=== PATIENT | female | born 1990 | race American Indian/Alaskan Native ===

== ENCOUNTER 2016-08-06 23:12 | Emergency (ER) | payer SELFPAY ==
[2016-08-06 23:41] VITALS: BP 138/72
== END 2016-08-07 | disposition left against medical advice (07) ==
LOC: ED 23:12
DX: R55 Syncope and collapse (principal); Z53.21 Procedure and treatment not carried out due to patient leaving prior to being seen by health care provider
CPT/HCPCS: 82962

== ENCOUNTER 2016-09-21 11:22 | Emergency (ER) | payer SELFPAY ==
--- NOTE | 2016-09-21 11:43 | Emergency Department Report ---
Chief Complaint: Urogenital-Female Stated Complaint: POSSIBLE UTI,CHLAMDYIA Time Seen by Provider: 09/21/16 11:41 - HPI History of Present Illness: PT states she had sex with her boyfriend a few days ago. PT states yesterday he told her that he was having penile drainage. - ROS Review of Systems: - dysuria + discharge, + white discharge - Exam Physical Exam: PT looks well, non toxic. steady gait gu exam not done in triage MSE screening note: Focused history and physical exam performed. Due to findings the following was ordered: labs ED Disposition for MSE Condition: Stable
[2016-09-21 11:46] VITALS: BP 108/42
--- NOTE | 2016-09-21 15:37 | Emergency Department Report ---
ED Female HPI - General Chief complaint: Urogenital-Female Stated complaint: POSSIBLE UTI,CHLAMDYIA Time Seen by Provider: 09/21/16 11:41 Source: patient Mode of arrival: Ambulatory Limitations: No Limitations - History of Present Illness Initial comments: This is a 26-year-old female well-nourished with nontoxic or ill in appearance but presented to ED complaining of possible STD exposure. Patient stated her boyfriend, which is currently being treated for STD in ED currently today, presented with a penile discharge times one day. Patient stated had a sexual unprotected sex 5 days ago prior to boyfriend having the symptoms. Patient denies any vaginal symptoms. Denies abdominal pelvic pain. Denies vaginal discharge, vaginal bleeding, dysuria, polyuria, foul order, chest pain, shortness of breath, fever, chills, headache nausea or vomiting. Patient stated "I want to be treated empirically for STD". Patient denies any allergies. Denies past medical history. Last menstrual cycle 09/16/16. MD Complaint: possible STD -: Gradual, days(s) (1) Improves with: none Worsens with: none Are you Now?: No (as per patient) Associated Symptoms: denies other symptoms. denies: vaginal discharge, vaginal bleeding, abdominal pain, nausea/vomiting, fever/chills, headaches, loss of appetite, dysuria, hematuria, rash, seizure, shortness of breath, syncope, weakness - Related Data Sexually active: Yes Allergies Allergy/AdvReac Type Severity Reaction Status Date / Time No Known Allergies Allergy Verified 09/21/16 11:42 ED Review of Systems ROS: Stated complaint: POSSIBLE UTI,CHLAMDYIA Other details as noted in HPI Constitutional: denies: chills, fever Eyes: denies: eye pain, eye discharge, vision change ENT: denies: ear pain, throat pain Respiratory: denies: cough, shortness of breath, wheezing Cardiovascular: denies: chest pain, palpitations Endocrine: no symptoms reported Gastrointestinal: denies: abdominal pain, nausea, diarrhea Genitourinary: denies: urgency, dysuria, discharge Musculoskeletal: denies: back pain, joint swelling, arthralgia Skin: denies: rash, lesions Neurological: denies: headache, weakness, paresthesias Psychiatric: denies: anxiety, depression Hematological/Lymphatic: denies: easy bleeding, easy bruising ED Past Medical Hx - Past Medical History Previous Medical History?: No Hx Seizures: Yes Additional medical history: ovarian cysts - Surgical History Past Surgical History?: No - Social History Smoking Status: Never Smoker Substance Use Type: Alcohol ED Physical Exam - General Limitations: No Limitations General appearance: alert, in no apparent distress - Head Head exam: Present: atraumatic, normocephalic, normal inspection - Eye Eye exam: Present: normal appearance, PERRL, EOMI. Absent: scleral icterus, conjunctival injection, nystagmus, periorbital swelling, periorbital tenderness Pupils: Present: normal accommodation - ENT ENT exam: Present: normal exam, normal orophraynx, mucous membranes moist, TM's normal bilaterally, normal external ear exam - Neck Neck exam: Present: normal inspection, full ROM. Absent: tenderness, meningismus, lymphadenopathy, thyromegaly - Respiratory Respiratory exam: Present: normal lung sounds bilaterally. Absent: respiratory distress, wheezes, rales, rhonchi, stridor, chest wall tenderness, accessory muscle use, decreased breath sounds, prolonged expiratory - Cardiovascular Cardiovascular Exam: Present: regular rate, normal rhythm, normal heart sounds. Absent: bradycardia, tachycardia, irregular rhythm, systolic murmur, diastolic murmur, rubs, gallop - GI/Abdominal GI/Abdominal exam: Present: soft, normal bowel sounds. Absent: distended, tenderness, guarding, rebound, rigid, diminished bowel sounds - Rectal Rectal exam: Present: deferred - External exam: Present: other (patient refuses exam) Speculum exam: Present: other (patient refused exam) Bi-manual exam: Present: other (patient refused exam) - Extremities Exam Extremities exam: Present: normal inspection, full ROM, normal capillary refill. Absent: tenderness, pedal edema, joint swelling, calf tenderness - Back Exam Back exam: Present: normal inspection, full ROM. Absent: tenderness, CVA tenderness (R), CVA tenderness (L), muscle spasm, paraspinal tenderness, vertebral tenderness, rash noted - Neurological Exam Neurological exam: Present: alert, oriented X3, CN II-XII intact, normal gait, reflexes normal - Psychiatric Psychiatric exam: Present: normal affect, normal mood - Skin Skin exam: Present: warm, dry, intact, normal color. Absent: rash ED Course Vital Signs 09/21/16 11:42 Temperature 98.1 F Pulse Rate 69 Respiratory 16 Rate Blood Pressure 108/42 O2 Sat by Pulse 100 Oximetry - Reevaluation(s) Reevaluation #1: 09/21/16 15:35 Patient is speaking in full sinus with no signs of distress noted. Reevaluation #2: 09/21/16 15:35 Patient states she refuses pelvic exam or any gonorrhea/chlamydia over prep exam. Patient states she just wants to be treated empirically in the ED for STD. Patient was instructed of my concerns and the importance of pelvic exam and testing for what prep. Patient still refused. ED Medical Decision Making - Medical Decision Making ED course; this is a 26-year-old female that presents with possible STD exposure 1- Patient states she refuses pelvic exam or any gonorrhea/chlamydia over prep exam. Patient states she just wants to be treated empirically in the ED for STD. Patient was instructed of my concerns and the importance of pelvic exam and testing for what prep. Patient still refused. 2- patient received Rocephin and azithromycin in the ED. 3- patient was instructed to follow-up with her primary care doctor in 3-5 days or if symptoms such as vaginal bleeding, vaginal discharge, fever, chills, chest pain, shortness of breath, abd pain or pelvic pain return to emergency room as was possible. 4- at time time of discharge, the patient does not seem toxic or ill in appearance. No acute signs of distress noted. Patient agrees to discharge treatment plan of care. No further questions noted by the patient. 5- Ua indicates elevated WBC, this may be due to and STD or another bacterial vaginal infection. Due to patient denies CVA tenderness or UTI symptoms, patient will not be treated for UTI. Patient was instructed if develops back pain and has UTI symptoms to return to ED as soon as possible Critical care attestation.: If time is entered above; I have spent that time in minutes in the direct care of this critically ill patient, excluding procedure time. ED Disposition Clinical Impression: Possible exposure to STD Disposition: DC-01 TO HOME OR SELFCARE Is pt being admited?: No Does the pt Need Aspirin: No Condition: Stable Instructions: Safe Sex (ED) Additional Instructions: follow-up with your primary care doctor in 3-5 days or if symptoms such as vaginal bleeding, vaginal discharge, fever, chills, chest pain, shortness of breath, abd pain or pelvic pain return to emergency room as was possible. Referrals: PRIMARY CARE, [Primary Care Provider] - 3-5 Days GUSTABO ANGULO JR, MD [Staff Physician] - 3-5 Days [facility] [Outside] - 3-5 Days [facility] [Outside] - 3-5 Days Forms: Work/School Release Form(ED)
[2016-09-21 16:22] LABS: Bacteria,Urine 1+ /HPF (Negative); Bilirubin,Urine NEG (Negative); Blood,Urine MOD (Negative); Ketones,Urine NEG (Negative); Leukocyte Esterase,Urine TR (Negative); Mucus,Urine 3+ /HPF; Nitrite,Urine NEG (Negative); Urobilinogen,Urine < 2.0 mg/dL (<2.0)
[2016-09-21] MEDS ORDERED: XYLOCAINE 1% MPF 5 mL INFILTRATI ONE (16:36)
[2016-09-21] MEDS ORDERED: ZITHROMAX PO ONE (16:36)
[2016-09-21] MEDS ORDERED: ROCEPHIN IM ONE (16:36)
== END 2016-09-21 16:59 | disposition home or self-care (01) ==
LOC: ED 11:22
DX: N89.8 Other specified noninflammatory disorders of vagina (principal)
CPT/HCPCS: 81001; 81025; 96372; 99283; J0696

== ENCOUNTER 2017-08-17 19:29 | Emergency (ER) | payer SELFPAY ==
[2017-08-17 20:59] LABS: Bilirubin,Urine NEG (Negative); Blood,Urine SM (Negative); Color,Urine Yellow (Yellow); Mucus,Urine 1+ /HPF; Protein,Urine <15 mg/dL mg/dL (Negative); Urobilinogen,Urine < 2.0 mg/dL (<2.0)
--- NOTE | 2017-08-18 00:22 | Emergency Department Report ---
ED Female HPI - General Chief complaint: Urogenital-Female Stated complaint: BURNING AND IRRITATED TO USE RESTROOM Source: patient Mode of arrival: Ambulatory Limitations: No Limitations - History of Present Illness Initial comments: Omeri 7-year-old -[place] female comes in stating she's been burning for one week. She reports that she just feels a little bit after she voids. She denies any fever or chills she denies any vaginal discharge or vaginal leading denies any pelvic pain denies any abdominal pain she denies any fever or chills no nausea no vomiting. Complaint: dysuria -: week(s) (1) Quality: burning Consistency: intermittent Are you Now?: No Last Menstrual Period: 07/23/17 EDC: 04/29/18 Associated Symptoms: denies: vaginal discharge, vaginal bleeding, abdominal pain , nausea/vomiting, fever/chills, headaches, hematuria - Related Data Sexually active: Yes Allergies Allergy/AdvReac Type Severity Reaction Status Date / Time No Known Allergies Allergy Verified 09/21/16 11:42 ED Review of Systems ROS: Stated complaint: BURNING AND IRRITATED TO USE RESTROOM Other details as noted in HPI Constitutional: denies: chills, fever Gastrointestinal: denies: abdominal pain, nausea, diarrhea Genitourinary: dysuria ED Past Medical Hx - Past Medical History Hx Seizures: Yes Additional medical history: ovarian cysts - Social History Smoking Status: Never Smoker Substance Use Type: None ED Physical Exam - General Limitations: No Limitations General appearance: alert, in no apparent distress, other (nontoxic) - Head Head exam: Present: atraumatic, normocephalic - ENT ENT exam: Present: mucous membranes moist - Respiratory Respiratory exam: Present: normal lung sounds bilaterally. Absent: respiratory distress - Cardiovascular Cardiovascular Exam: Present: regular rate, normal rhythm. Absent: systolic murmur, diastolic murmur, rubs, gallop - GI/Abdominal GI/Abdominal exam: Present: soft, normal bowel sounds - External exam: Present: other (declines examination) - Neurological Exam Neurological exam: Present: alert, oriented X3 - Psychiatric Psychiatric exam: Present: normal affect, normal mood - Skin Skin exam: Present: warm, dry, intact, normal color. Absent: rash ED Course Vital Signs 08/17/17 08/17/17 20:09 20:33 Temperature 98.4 F 98.4 F Pulse Rate 84 79 Respiratory 18 Rate Blood Pressure 138/71 138/71 O2 Sat by Pulse 100 99 Oximetry ED Medical Decision Making - Medical Decision Making Patient has been evaluated but this provider fast track. Patient was on a concern that she had a urinary tract infection. Patient declines having a pelvic exam done. Patient has no other concerns no fever chills or nausea no vomiting no abdominal pain or pelvic pain. Discussed the patient symptoms persist or gets worse she should follow back up either in the emergency room or primary care provider. Patient verbalizes understanding Critical care attestation.: If time is entered above; I have spent that time in minutes in the direct care of this critically ill patient, excluding procedure time. ED Disposition Clinical Impression: Dysuria Disposition: DC-01 TO HOME OR SELFCARE Is pt being admited?: No Does the pt Need Aspirin: No Condition: Stable Instructions: Dysuria (ED) Additional Instructions: Please increase fluid intake. If symptoms persist or gets worse please follow up with her primary care provider with emergency room. Referrals: PRIMARY CAREMD [Primary Care Provider] - 3-5 Days [facility] [Provider Group] - 3-5 Days Forms: Work/School Release Form(ED)
[2017-08-18 01:30] VITALS: BP 125/68
== END 2017-08-18 00:45 | disposition home or self-care (01) ==
LOC: ED 19:29
DX: R30.0 Dysuria (principal)
CPT/HCPCS: 81001; 99283

== ENCOUNTER 2018-09-19 14:47 | Emergency (ER) | payer SELFPAY ==
--- NOTE | 2018-09-19 15:22 | Emergency Department Report ---
Blank Doc - Documentation Documentation: This is a 28-year-old female that presents with pelvic pain and nausea. This initial assessment/diagnostic orders/clinical plan/treatment(s) is/are subject to change based on patient's health status, clinical progression and re- assessment by fellow clinical providers in the ED. Further treatment and workup at subsequent clinical providers discretion. Patient/guardians urged not to elope from the ED as their condition may be serious if not clinically assessed and managed. Initial orders include: 1- Patient sent to [facility] for further evaluation and treatment 2- UA
[2018-09-19 15:24] VITALS: BP 117/70
[2018-09-19 16:21] LABS: HCG Qualitative,Urine Negative (Negative)
[2018-09-19 16:24] LABS: Bilirubin,Urine NEG (Negative); Blood,Urine SM (Negative); Color,Urine Yellow (Yellow); Hyaline Casts,Urine 2 /LPF; Mucus,Urine 3+ /HPF; Protein,Urine <15 mg/dL mg/dL (Negative); Urobilinogen,Urine < 2.0 mg/dL (<2.0)
--- NOTE | 2018-09-19 16:43 | Emergency Department Report ---
ED Dysuria HPI - HPI Chief Complaint: Abdominal Pain Stated Complaint: STOMACH PAIN/DIZZY/VOMIT Time Seen by Provider: 09/19/18 15:21 Duration: 2 Days Severity: None Symptoms: Dysuria: No, Frequency: No, Suprapubic Pain: No, Flank Pain: No, Fever: No, Hematuria: No, Abdominal Pain: No, Previous UTI's: No Other History: Patient is a 28-year-old obese female who comes to the ER today stating that she had a home test and that she has had some nausea vomiting and dizziness. She is here to confirm her . Her last menstrual cycle was April 05. She has been once before and had one miscarriage. Patient states that she only spotted one time between March and now on that was in June. She denies abdominal pain. She denies any vaginal bleeding or discharge at this time. She is here with her significant other who is quite shocked that the patient is not for she has had a home test that was positive and has gained a lot of weight. ED Review of Systems ROS: Stated complaint: STOMACH PAIN/DIZZY/VOMIT Other details as noted in HPI Comment: All other systems reviewed and negative ED Past Medical Hx - Past Medical History Previous Medical History?: Yes Hx Seizures: Yes Additional medical history: ovarian cysts - Surgical History Past Surgical History?: No - Family History Family history: no significant - Social History Smoking Status: Never Smoker Substance Use Type: None - Medications Home Medications: Home Medications Medication Instructions Recorded Confirmed Last Taken Type Sulfamethoxazole/Trimethoprim 1 each PO BID #6 tablet 09/19/18 Unknown Rx [Bactrim DS TAB] Dysuria Exam - Exam General: Vital signs noted. No distress. Alert and acting appropriately. Exam: Yes Moist Mucous Membranes, No CVA Tenderness, No Abdominal Tenderness, No Rigidity or Guarding Labs: Lab Results 09/19/18 Range/Units 15:53 Urine Color Yellow (Yellow) Urine Turbidity Slightly-cloudy (Clear) Urine pH 6.0 (5.0-7.0) Ur Specific [place] 1.020 (1.003-1.030) Urine Protein <15 mg/dl (Negative) mg/dL Urine Glucose (UA) Neg (Negative) mg/dL Urine Ketones Neg (Negative) mg/dL Urine Blood Sm (Negative) Urine Nitrite Neg (Negative) Ur Reducing Substances Not Reportable Urine Bilirubin Neg (Negative) Urine Ictotest Not Reportable Urine Urobilinogen < 2.0 (<2.0) mg/dL Ur Leukocyte Esterase Sm (Negative) Urine WBC (Auto) 10.0 H (0.0-6.0) /HPF Urine RBC (Auto) 5.0 (0.0-6.0) /HPF U Epithel Cells (Auto) 8.0 (0-13.0) /HPF Hyaline Casts 2 /LPF Urine Mucus 3+ /HPF Urine HCG, Qual Negative (Negative) ED Course Vital Signs 09/19/18 15:22 Temperature 98.3 F Pulse Rate 78 Respiratory 18 Rate Blood Pressure 117/70 O2 Sat by Pulse 100 Oximetry ED Medical Decision Making - Lab Data Result diagrams: 09/19/18 17:20 09/19/18 17:20 - Medical Decision Making Lab Results 09/19/18 09/19/18 09/19/18 Range/Units 15:53 17:20 17:20 WBC 9.8 (4.5-11.0) K/mm3 RBC 4.57 (3.65-5.03) M/mm3 Hgb 13.9 (10.1-14.3) gm/dl Hct 41.5 (30.3-42.9) % MCV 91 (79-97) fl MCH 31 (28-32) pg MCHC 34 (30-34) % RDW 13.4 (13.2-15.2) % Plt Count 388 (140-440) K/mm3 Sodium 141 (137-145) mmol/L Potassium 3.7 (3.6-5.0) mmol/L Chloride 104.0 (98-107) mmol/L Carbon Dioxide 25 (22-30) mmol/L Anion Gap 16 mmol/L BUN 8 (7-17) mg/dL Creatinine 0.8 (0.7-1.2) mg/dL Estimated GFR > 60 ml/min BUN/Creatinine Ratio 10 % Glucose 106 H (65-100) mg/dL Calcium 9.1 (8.4-10.2) mg/dL HCG, Quant (0-4) mIU/mL Urine Color Yellow (Yellow) Urine Turbidity Slightly-cloudy (Clear) Urine pH 6.0 (5.0-7.0) Ur Specific [place] 1.020 (1.003-1.030) Urine Protein <15 mg/dl (Negative) mg/dL Urine Glucose (UA) Neg (Negative) mg/dL Urine Ketones Neg (Negative) mg/dL Urine Blood Sm (Negative) Urine Nitrite Neg (Negative) Ur Reducing Substances Not Reportable Urine Bilirubin Neg (Negative) Urine Ictotest Not Reportable Urine Urobilinogen < 2.0 (<2.0) mg/dL Ur Leukocyte Esterase Sm (Negative) Urine WBC (Auto) 10.0 H (0.0-6.0) /HPF Urine RBC (Auto) 5.0 (0.0-6.0) /HPF U Epithel Cells (Auto) 8.0 (0-13.0) /HPF Hyaline Casts 2 /LPF Urine Mucus 3+ /HPF Urine HCG, Qual Negative (Negative) 09/19/18 Range/Units 17:20 WBC (4.5-11.0) K/mm3 RBC (3.65-5.03) M/mm3 Hgb (10.1-14.3) gm/dl Hct (30.3-42.9) % MCV (79-97) fl MCH (28-32) pg MCHC (30-34) % RDW (13.2-15.2) % Plt Count (140-440) K/mm3 Sodium (137-145) mmol/L Potassium (3.6-5.0) mmol/L Chloride (98-107) mmol/L Carbon Dioxide (22-30) mmol/L Anion Gap mmol/L BUN (7-17) mg/dL Creatinine (0.7-1.2) mg/dL Estimated GFR ml/min BUN/Creatinine Ratio % Glucose (65-100) mg/dL Calcium (8.4-10.2) mg/dL HCG, Quant < 2 (0-4) mIU/mL Urine Color (Yellow) Urine Turbidity (Clear) Urine pH (5.0-7.0) Ur Specific [place] (1.003-1.030) Urine Protein (Negative) mg/dL Urine Glucose (UA) (Negative) mg/dL Urine Ketones (Negative) mg/dL Urine Blood (Negative) Urine Nitrite (Negative) Ur Reducing Substances Urine Bilirubin (Negative) Urine Ictotest Urine Urobilinogen (<2.0) mg/dL Ur Leukocyte Esterase (Negative) Urine WBC (Auto) (0.0-6.0) /HPF Urine RBC (Auto) (0.0-6.0) /HPF U Epithel Cells (Auto) (0-13.0) /HPF Hyaline Casts /LPF Urine Mucus /HPF Urine HCG, Qual (Negative) Vital Signs 09/19/18 15:22 Temperature 98.3 F Pulse Rate 78 Respiratory 18 Rate Blood Pressure 117/70 O2 Sat by Pulse 100 Oximetry u preg neg labs noted hcg serum neg urine noted dc home with dc plan of care and obgyn follow up - Differential Diagnosis ro Critical care attestation.: If time is entered above; I have spent that time in minutes in the direct care of this critically ill patient, excluding procedure time. ED Disposition Clinical Impression: UTI (urinary tract infection), Negative test Disposition: DC-01 TO HOME OR SELFCARE Is pt being admited?: No Does the pt Need Aspirin: No Condition: Stable Instructions: Urinary Tract Infection in Women (ED) Additional Instructions: DIET TOLERATED MEDS ORDERED TODAY IN ER FOLLOW INSTRUCTIONS ON THE BOTTLE FOLLOW UP PCP WITHIN 48 HOURS TO ENSURE YOU ARE GETTING BETTER ACTIVITY TOLERATED MOTRIN OR TYLENOL FOR PAIN OR FEVER RETURN TO THE ER FOR WORSENING SYMPTOMS NOT RELIEVED BY YOUR MEDICATIONS. safe sex URINE AND BLOOD NEGATIVE Prescriptions: Sulfamethoxazole/Trimethoprim [Bactrim DS TAB] 1 each PO BID #6 tablet Referrals: PRIMARY CARE, [Primary Care Provider] - 3-5 Days JAE ANDRES MD [Staff Physician] - 3-5 Days Time of Disposition: 18:00
[2018-09-19 17:29] LABS: Hematocrit 41.5 % (30.3-42.9); Hemoglobin 13.9 gm/dl (10.1-14.3); Mean Corpuscular HGB Conc 34 % (30-34); Mean Corpuscular Volume 91 fl (79-97); Platelet Count 388 K/mm3 (140-440); Red Blood Count 4.57 M/mm3 (3.65-5.03); Red Cell Distribution Width 13.4 % (13.2-15.2)
[2018-09-19 17:49] LABS: BUN/Creatinine Ratio 10; Blood Urea Nitrogen 8 mg/dL (7-17); Calcium 9.1 mg/dL (8.4-10.2); Hemolysis Index 31
== END 2018-09-19 18:15 | disposition home or self-care (01) ==
LOC: ED 14:47
DX: N39.0 Urinary tract infection, site not specified (principal); Z32.02 Encounter for pregnancy test, result negative
CPT/HCPCS: 36415; 80048; 81001; 81025; 84702; 85027; 87086; 99283

== ENCOUNTER 2018-11-07 14:53 | Emergency (ER) | payer SELFPAY ==
[2018-11-07 16:07] VITALS: BP 128/71
--- NOTE | 2018-11-07 16:09 | Event Note ---
ED Screening Note Date of service: 11/07/18 Time: 16:06 ED Screening Note: 28 y o female presents with cc of R knee pain This initial assessment/diagnostic orders/clinical plan/treatment(s) is/are subject to change based on patients health status, clinical progression and re- assessment by fellow clinical providers in the ED. Further treatment and workup at subsequent clinical providers discretion. Patient/guardian urged not to elope from the ED as their condition may be serious if not clinically assessed and managed. Initial orders include: xr knee eval acc
--- NOTE | 2018-11-07 17:08 | XRay Report ---
RIGHT KNEE 4 VIEWS INDICATION / CLINICAL INFORMATION: Right knee pain and swelling. COMPARISON: None available. FINDINGS: BONES / JOINT(S): No acute fracture or subluxation. No significant arthritis. SOFT TISSUES: No significant abnormality. ADDITIONAL FINDINGS: None. Signer Name: Agustín Brooks MD Signed: 11/07/2018 5:04 PM Workstation Name: [id number]
--- NOTE | 2018-11-07 19:16 | Emergency Department Report ---
ED Lower Extremity HPI - General Chief Complaint: Extremity Injury, Lower Stated Complaint: RT KNEE PAIN Time Seen by Provider: 11/07/18 16:04 Source: patient Mode of arrival: Ambulatory Limitations: No Limitations - History of Present Illness MD Complaint: knee injury -: days(s) Injury: Knee: Right Type of Injury: unknown Place: home Severity: mild Improves With: nothing Worsens With: weight bearing, movement, palpation Associated Symptoms: able to partially bear weight Treatments Prior to Arrival: cold therapy - Related Data Previous Rx's Medication Instructions Recorded Last Taken Type Sulfamethoxazole/Trimethoprim 1 each PO BID #6 tablet 09/19/18 Unknown Rx [Bactrim DS TAB] Ketorolac [Toradol] 10 mg PO Q6H PRN #15 tablet 11/07/18 Unknown Rx Leg Brace [Knee Brace] 1 each MC DAILY #1 each 11/07/18 Unknown Rx traMADol [Ultram] 50 mg PO Q6HR PRN #20 tablet 11/07/18 Unknown Rx Allergies Allergy/AdvReac Type Severity Reaction Status Date / Time No Known Allergies Allergy Verified 09/21/16 11:42 ED Review of Systems ROS: Stated complaint: RT KNEE PAIN Other details as noted in HPI ED Past Medical Hx - Past Medical History Previous Medical History?: Yes Hx Seizures: Yes Additional medical history: ovarian cysts - Surgical History Past Surgical History?: No - Social History Smoking Status: Never Smoker Substance Use Type: None - Medications Home Medications: Home Medications Medication Instructions Recorded Confirmed Last Taken Type Sulfamethoxazole/Trimethoprim 1 each PO BID #6 tablet 09/19/18 Unknown Rx [Bactrim DS TAB] Ketorolac [Toradol] 10 mg PO Q6H PRN #15 tablet 11/07/18 Unknown Rx Leg Brace [Knee Brace] 1 each MC DAILY #1 each 11/07/18 Unknown Rx traMADol [Ultram] 50 mg PO Q6HR PRN #20 tablet 11/07/18 Unknown Rx ED Physical Exam - General Limitations: No Limitations General appearance: alert, in no apparent distress - Head Head exam: Present: atraumatic, normocephalic - Eye Eye exam: Present: normal appearance - ENT ENT exam: Present: mucous membranes moist - Neck Neck exam: Present: normal inspection - Respiratory Respiratory exam: Present: normal lung sounds bilaterally. Absent: respiratory distress - Cardiovascular Cardiovascular Exam: Present: regular rate, normal rhythm. Absent: systolic murmur, diastolic murmur, rubs, gallop - GI/Abdominal GI/Abdominal exam: Present: soft, normal bowel sounds - Extremities Exam Extremities exam: Present: normal inspection - Expanded Lower Extremity Exam Right Knee exam: Present: tenderness. Absent: swelling, abrasion, laceration, ecchymosis, dislocation, effusion, pain w/ pronation/supination, posterior draw sign, pain/laxity with varus, full knee extension - Back Exam Back exam: Present: normal inspection - Neurological Exam Neurological exam: Present: alert, oriented X3 - Psychiatric Psychiatric exam: Present: normal affect, normal mood - Skin Skin exam: Present: warm, dry, intact, normal color. Absent: rash ED Course Vital Signs 11/07/18 16:04 Temperature 97.9 F Pulse Rate 75 Respiratory 18 Rate Blood Pressure 128/71 O2 Sat by Pulse 100 Oximetry Critical care attestation.: If time is entered above; I have spent that time in minutes in the direct care of this critically ill patient, excluding procedure time. ED Disposition Clinical Impression: Knee pain, right Disposition: DC-01 TO HOME OR SELFCARE Is pt being admited?: No Does the pt Need Aspirin: No Condition: Stable Instructions: Arthralgia (ED) Prescriptions: Leg Brace [Knee Brace] 1 each MC DAILY #1 each Ketorolac [Toradol] 10 mg PO Q6H PRN #15 tablet PRN Reason: Pain traMADol [Ultram] 50 mg PO Q6HR PRN #20 tablet PRN Reason: Pain Referrals: BRAEDEN ZULETA MD [Staff Physician] - 3-5 Days
== END 2018-11-07 19:20 | disposition home or self-care (01) ==
LOC: ED 14:53
DX: M25.561 Pain in right knee (principal); Z79.899 Other long term (current) drug therapy

== ENCOUNTER 2019-02-15 13:29 | Emergency (ER) | payer SELFPAY ==
[2019-02-15 13:59] VITALS: BP 132/80
[2019-02-15] MEDS ORDERED: ONDANSETRON 4 MG ODT TAB PO ONE (14:54)
[2019-02-15] MEDS ORDERED: ONDANSETRON 4 MG/2 ML INJ IV ONE (14:55)
[2019-02-15] MEDS ORDERED: SODIUM CHLORIDE 0.9% 1000 ML 1,000 ML IV ONE (14:55)
--- NOTE | 2019-02-15 14:56 | Emergency Department Report ---
ED N/V/D HPI - General Chief complaint: Upper Respiratory Infection Stated complaint: COLD SX/VOMITING BLOOD/BODY PX Time Seen by Provider: 02/15/19 14:53 Source: patient Mode of arrival: Ambulatory Limitations: No Limitations - History of Present Illness Initial comments: 28 yo AA female comes to ER with myalgia and vomiting. Vomiting on exam. VSS. no fever or chills. no abd pain. 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 MD complaint: vomiting -: Gradual Associated Symptoms: denies other symptoms, myalgias - Related Data Previous Rx's Medication Instructions Recorded Last Taken Type Ondansetron [Zofran Odt] 4 mg PO Q8HR PRN #10 tab.rapdis 02/15/19 Unknown Rx Allergies Allergy/AdvReac Type Severity Reaction Status Date / Time No Known Allergies Allergy Verified 09/21/16 11:42 ED Review of Systems ROS: Stated complaint: COLD SX/VOMITING BLOOD/BODY PX Other details as noted in HPI Comment: All other systems reviewed and negative ED Past Medical Hx - Past Medical History Previous Medical History?: Yes Hx Seizures: Yes Additional medical history: ovarian cysts - Surgical History Past Surgical History?: No - Family History Family history: no significant - Social History Smoking Status: Never Smoker Substance Use Type: None - Medications Home Medications: Home Medications Medication Instructions Recorded Confirmed Last Taken Type Ondansetron [Zofran Odt] 4 mg PO Q8HR PRN #10 tab.rapdis 02/15/19 Unknown Rx ED Physical Exam - General Limitations: No Limitations General appearance: alert, in no apparent distress - Head Head exam: Present: atraumatic, normocephalic - Eye Eye exam: Present: normal appearance - ENT ENT exam: Present: mucous membranes moist - Neck Neck exam: Present: normal inspection - Respiratory Respiratory exam: Present: normal lung sounds bilaterally. Absent: respiratory distress - Cardiovascular Cardiovascular Exam: Present: regular rate, normal rhythm. Absent: systolic murmur, diastolic murmur, rubs, gallop - GI/Abdominal GI/Abdominal exam: Present: soft, normal bowel sounds - Extremities Exam Extremities exam: Present: normal inspection - Back Exam Back exam: Present: normal inspection - Neurological Exam Neurological exam: Present: alert, oriented X3 - Psychiatric Psychiatric exam: Present: normal affect, normal mood - Skin Skin exam: Present: warm, dry, intact, normal color. Absent: rash ED Course Vital Signs 02/15/19 13:57 Temperature 98.2 F Pulse Rate 100 H Respiratory 18 Rate Blood Pressure 132/80 O2 Sat by Pulse 100 Oximetry ED Medical Decision Making - Lab Data Result diagrams: 02/15/19 15:01 02/15/19 15:01 - Medical Decision Making Labs 02/15/19 02/15/19 02/15/19 15:01 15:01 15:02 WBC 9.0 RBC 4.42 Hgb 13.2 Hct 38.9 MCV 88 MCH 30 MCHC 34 RDW 13.0 L Plt Count 406 Lymph % (Auto) 19.9 Rogers % (Auto) 9.1 H Eos % (Auto) 7.8 H Baso % (Auto) 0.4 Lymph # 1.8 Rogers # 0.8 Eos # 0.7 H Baso # 0.0 Seg Neutrophils % 62.8 Seg Neutrophils # 5.6 Sodium 139 Potassium 3.5 L Chloride 101.1 Carbon Dioxide 26 Anion Gap 15 BUN 5 L Creatinine 0.7 Estimated GFR > 60 BUN/Creatinine Ratio 7 Glucose 97 Calcium 9.1 Total Bilirubin 0.50 AST 19 ALT 13 Alkaline Phosphatase 106 Total Protein 7.1 Albumin 4.0 Albumin/Globulin Ratio 1.3 Lipase 24 Urine Color Yellow Urine Turbidity Slightly-cloudy Urine pH 8.0 H Ur Specific Kodak 1.010 Urine Protein <15 mg/dl Urine Glucose (UA) Neg Urine Ketones Neg Urine Blood Sm Urine Nitrite Neg Urine Bilirubin Neg Urine Urobilinogen < 2.0 Ur Leukocyte Esterase Neg Urine WBC (Auto) < 1.0 Urine RBC (Auto) 1.0 U Epithel Cells (Auto) 7.0 Urine HCG, Qual Negative Vital Signs 02/15/19 13:57 Temperature 98.2 F Pulse Rate 100 H Respiratory 18 Rate Blood Pressure 132/80 O2 Sat by Pulse 100 Oximetry pt comes to er vomiting. preg neg ua noted labs noted NS/zofran given with relief vss no fever chills no abd pain abd exam wnl ambulatory taking po dc home with dc plan of care and pcp follow up - Differential Diagnosis ro preg/viral illness Critical care attestation.: If time is entered above; I have spent that time in minutes in the direct care of this critically ill patient, excluding procedure time. ED Disposition Clinical Impression: Viral illness, Vomiting, Hypokalemia Disposition: DC- TO HOME OR SELFCARE Is pt being admited?: No Does the pt Need Aspirin: No Condition: Stable Instructions: Viral Syndrome (ED) Additional Instructions: rest hydrate well with water motrin or tylenol for pain or fever diet as tolerated advance slowly follow up with pcp in 48 hours for recheck zofran for nausea/vomiting Prescriptions: Ondansetron [Zofran Odt] 4 mg PO Q8HR PRN #10 tab.rapdis PRN Reason: Vomiting Referrals: PARVEEN WALSH MD [Staff Physician] - 3-5 Days Time of Disposition: 15:58
[2019-02-15 15:27] LABS: Basophils % (Auto) 0.4 % (0.0-1.8); Eosinophils # (Auto) 0.7 K/mm3 (0.0-0.4); Eosinophils % (Auto) 7.8 % (0.0-4.3); Hematocrit 38.9 % (30.3-42.9); Hemoglobin 13.2 gm/dl (10.1-14.3); Lymphocytes # (Auto) 1.8 K/mm3 (1.2-5.4); Lymphocytes % (Auto) 19.9 % (13.4-35.0); Mean Corpuscular HGB Conc 34 % (30-34); Mean Corpuscular Volume 88 fl (79-97); Monocytes # (Auto) 0.8 K/mm3 (0.0-0.8); Monocytes % (Auto) 9.1 % (0.0-7.3); Platelet Count 406 K/mm3 (140-440); Red Blood Count 4.42 M/mm3 (3.65-5.03)
[2019-02-15 15:40] LABS: Bilirubin,Urine NEG (Negative); Blood,Urine SM (Negative); Color,Urine Yellow (Yellow); HCG Qualitative,Urine Negative (Negative); Protein,Urine <15 mg/dL mg/dL (Negative); Urobilinogen,Urine < 2.0 mg/dL (<2.0); WBC,Urine < 1.0 /HPF (0.0-6.0)
[2019-02-15 15:44] LABS: Alanine Aminotransferase 13 units/L (7-56); BUN/Creatinine Ratio 7; Blood Urea Nitrogen 5 mg/dL (7-17); Calcium 9.1 mg/dL (8.4-10.2); Hemolysis Index 8
[2019-02-15] MEDS ORDERED: POTASSIUM CHLORIDE ER 20 MEQ TAB PO ONE (15:46)
== END 2019-02-15 16:10 | disposition home or self-care (01) ==
LOC: ED 13:29
DX: B34.9 Viral infection, unspecified (principal); E87.6 Hypokalemia; Z98.890 Other specified postprocedural states
CPT/HCPCS: 36415; 80053; 81001; 81025; 83690; 85025; 87400; 96361; 96374; 99283; J2405; J7030

== ENCOUNTER 2021-09-10 20:06 | Emergency (ER) | payer SELFPAY ==
[2021-09-10 23:15] VITALS: BP 142/95
== END 2021-09-12 02:50 | disposition left against medical advice (07) ==
LOC: ED 20:06
DX: J01.90 Acute sinusitis, unspecified (principal); Z53.21 Procedure and treatment not carried out due to patient leaving prior to being seen by health care provider